=== PATIENT | male | born 1965 | race Caucasian/White ===

== ENCOUNTER → 2017-12-20 | Outpatient (CLI) | payer OTHER ==
--- NOTE | 2017-12-20 17:32 | US ---
EXAMINATION TYPE: US venous doppler duplex LE LT DATE OF EXAM: 12/20/2017 4:47 PM COMPARISON: NONE CLINICAL HISTORY: Lt leg Pain M79.672. SIDE PERFORMED: Left TECHNIQUE: The lower extremity deep venous system is examined utilizing real time linear array sonog pilar with graded compression, doppler sonography and color-flow sonography. VESSELS IMAGED: External Iliac Vein (EIV) Common Femoral Vein Deep Femoral Vein Greater Saphenous Vein * Femoral Vein Popliteal Vein Small Saphenous Vein * Proximal Calf Veins (* superficial vessels) Grayscale, color doppler, spectral doppler imaging performed of the deep veins of the lower extremity . There is normal flow, compressibility, vascular waveforms. Left Leg: Negative for DVT GSV and PTV's also scanned per order. IMPRESSION: No sonographic evidence of deep venous thrombosis within the left lower extremity.
== END | disposition home or self-care (01) ==
LOC: RADUSMAIN 16:17
PROVIDERS: ATTEND Orthopaedic Surgery
DX: M79.672 Pain in left foot (principal); E11.9 Type 2 diabetes mellitus without complications

== ENCOUNTER 2018-02-25 00:43 | Emergency (ER) | payer OTHER ==
[2018-02-25 00:49] VITALS: BP 170/91; PULSE 70; RESP 16; TEMP 97.9
[2018-02-25] MEDS ORDERED: LIDOCAINE 1% INJ 10MG/ML (20 ML MDV) SQ ONE (02:08)
--- NOTE | 2018-02-25 02:26 | ED ---
Wound/Laceration HPI - General Chief Complaint: Wound/Laceration Stated Complaint: Finger laceration Time Seen by Provider: 02/25/18 01:01 Source: patient Mode of arrival: ambulatory Limitations: no limitations - History of Present Illness Initial Comments: 52-year-old male patient presents to the emergency department today for evaluation of laceration to the index finger on the left hand. Patient states that just prior to arrival he was cutting a round valley with a very sharp knife. States that he slipped and cut his finger. Patient denies any limitations in range of motion. States that his last tetanus vaccine was approximately a year ago. Patient does take an anticoagulant was concerned about bleeding. He denies any significant pain at this time. Denies any other injuries. Patient denies any headache, neck pain, back pain, chest pain, shortness of breath, dizziness, weakness, abdominal pain, nausea, vomiting, or difficulties with bowel movements or urination. - Related Data Previous Rx's Medication Instructions Recorded Aspirin 81 mg PO DAILY #30 chew 09/04/15 Atorvastatin [Lipitor] 80 mg PO HS #30 tab 09/04/15 Enalapril [Vasotec] 5 mg PO DAILY #30 tab 09/04/15 Insulin Glargine [Lantus] 50 unit SQ HS #0 09/04/15 Insulin Lispro [humaLOG Kwikpen] 12 unit SQ AC-TID #1 insuln.pen 09/04/15 Metoprolol Tartrate [Lopressor] 25 mg PO BID #60 tab 09/04/15 Nitroglycerin Sl Tabs [Nitrostat] 0.4 mg SUBLINGUAL Q5M PRN #25 tab 09/04/15 Ticagrelor [Brilinta] 90 mg PO BID #1 tab 09/04/15 predniSONE 40 mg PO DAILY #8 tab 07/04/17 Allergies Allergy/AdvReac Type Severity Reaction Status Date / Time No Known Allergies Allergy Verified 02/25/18 00:49 Review of Systems ROS Statement: Those systems with pertinent positive or pertinent negative responses have been documented in the HPI. ROS Other: All systems not noted in ROS Statement are negative. Past Medical History Past Medical History: Coronary Artery Disease (CAD), Chest Pain / Angina, Diabetes Mellitus, GERD/Reflux, Hyperlipidemia, Hypertension, Myocardial Infarction ([place]) Last Myocardial Infarction Date:: 08/31/15 History of Any Multi-Drug Resistant Organisms: None Reported Past Surgical History: Back Surgery, Heart Catheterization With Stent Past Anesthesia/Blood Transfusion Reactions: No Reported Reaction Date of Last Stent Placement:: 08/31/15 Past Psychological History: No Psychological Hx Reported Smoking Status: Never smoker Past Alcohol Use History: Occasional Past Drug Use History: None Reported - Past Family History Father Family Medical History: Myocardial Infarction ([place]) Additional Family Medical History / Comment(s): father at age 58 from [place] General Exam Limitations: no limitations General appearance: alert, in no apparent distress, other (This is a well- developed, well-nourished adult male patient in no acute distress. Vital signs upon presentation are temperature 97.9F, pulse 70, respirations 16, blood pressure 170/91, pulse ox 98% on room air.) Eye exam: Present: normal appearance, PERRL, EOMI. Absent: scleral icterus, conjunctival injection, periorbital swelling ENT exam: Present: normal exam, normal oropharynx, mucous membranes moist Respiratory exam: Present: normal lung sounds bilaterally. Absent: respiratory distress, wheezes, rales, rhonchi, stridor Cardiovascular Exam: Present: regular rate, normal rhythm, normal heart sounds. Absent: systolic murmur, diastolic murmur, rubs, gallop, clicks Extremities exam: Present: full ROM, normal capillary refill, other (Patient has 2 cm laceration noted to the left index finger near the PIP joint. Patient has good range of motion. No visualization of the tendon. Patient has good strength against resistance both with flexion and extension. Skin to the remainder of the hand is pink, warm, and dry. Cap refills less than 3 seconds. Radial pulses 2+ and equal bilaterally.). Absent: normal inspection, tenderness, pedal edema, joint swelling, calf tenderness Course Vital Signs 02/25/18 00:46 Temperature 97.9 F Pulse Rate 70 Respiratory 16 Rate Blood Pressure 170/91 O2 Sat by Pulse 98 Oximetry Procedures - Laceration Laceration #1 Consent Obtained: verbal consent Time Out Performed: Yes Indication: laceration Site: upper extremity (Left index finger) Size (cm): 2 Description: linear Depth: simple, single layer Anesthetic Used: lidocaine 1% Anesthesia Technique: local infiltration Amount (mls): 3 Pre-repair: irrigated extensively Type of Sutures: nylon Size of Sutures: 5-0 Number of Sutures: 3 Technique: simple, interrupted Patient Tolerated Procedure: well, no complications Medical Decision Making - Medical Decision Making 52-year-old male patient presented to the emergency department today for evaluation of laceration to the left index finger. Physical examination did reveal 2 cm laceration. Bleeding was controlled. Patient had good strength against resistance with both flexion and extension. Neurovascular status was intact. Laceration was sutured as documented. Patient was instructed to return in 7 days for suture removal. He is educated regarding signs or symptoms of infection as well as appropriate wound care. Return parameters discussed in detail. He verbalizes understanding and agreed with this plan. Disposition Clinical Impression: Finger laceration Disposition: HOME SELF-CARE Condition: Good Instructions: Care For Your Stitches (ED), Finger Laceration (ED) Additional Instructions: Monitor for signs or symptoms of infection including but not limited to swelling , redness, drainage of pus, fever, or chills. Keep wound clean and dry. Cleanse twice daily with warm water and antibacterial soap. Return in 7 days to have the stitches removed. Follow-up with your primary care physician for recheck of the wound in 1-2 days. Return here immediately for any new, worsening, or concerning symptoms. Is patient prescribed a controlled substance at d/c from ED?: No Referrals: Ignacio Bojorquez DO [Primary Care Provider] - 1-2 days Time of Disposition: 02:26
== END 2018-02-25 02:35 | disposition home or self-care (01) ==
LOC: EC 00:43
DX: S61.211A Laceration without foreign body of left index finger without damage to nail, initial encounter (principal); Z79.01 Long term (current) use of anticoagulants; W26.0XXA Contact with knife, initial encounter; Y93.89 Activity, other specified
CPT/HCPCS: 99282; 12001; J2001

== ENCOUNTER → 2018-11-27 | Outpatient (CLI) | payer OTHER ==
[2018-11-28 01:57] LABS: Anion Gap 8.5 mmol/L (4.00-12.00); Calcium 9.1 mg/dL (8.7-10.3); Carbon Dioxide 19.5 mmol/L (21.6-31.8); Potassium 4.7 mmol/L (3.5-5.5)
== END | disposition home or self-care (01) ==
LOC: LABWHC1 14:50
PROVIDERS: ATTEND Family Medicine
DX: E78.5 Hyperlipidemia, unspecified (principal)
CPT/HCPCS: 36415; 80048

== ENCOUNTER → 2019-05-14 | Outpatient (CLI) | payer OTHER ==
--- NOTE | 2019-05-14 20:01 | MR ---
EXAMINATION TYPE: MR knee LT wo con DATE OF EXAM: 05/14/2019 COMPARISON: None HISTORY: Pain in left knee /Bursitis TECHNIQUE: Multiplanar, multisequence imaging of the left knee is performed without IV contrast. FINDINGS: MEDIAL MENISCUS: Intrasubstance signal posterior horn most typical of myxoid degeneration with no def inite tear. LATERAL MENISCUS: signal posterior horn most typical of myxoid degeneration with no definite tear. CRUCIATE LIGAMENTS: The anterior and posterior cruciate ligaments are intact and unremarkable. COLLATERAL LIGAMENTS: The medial collateral ligament and lateral collateral ligament complex are inta ct and unremarkable. EXTENSOR MECHANISM: Visualized quadriceps and patellar tendons are intact. EFFUSION: Trace amount fluid in the suprapatellar joint effusion. POPLITEAL CYST: No popliteal/wiseman cyst. TRICOMPARTMENT SPACES: Mild narrowing the joint spaces with no erosive change. Grade II chondromalaci a involving the medial femoral articular cartilage fibrillation involving the patellar cartilage note d. BONE MARROW SIGNAL: No focal abnormal marrow signal is appreciated. OTHER: There is extensive soft tissue edema anterior to the tibia and within the prepatellar space. Areas of mixed signal could represent areas of soft tissue hematoma. Additional diffuse soft tissue e reji noted. IMPRESSION: 1. Diffuse soft tissue edema more localized area of edema in the prepatellar space correlate for prep atellar bursitis. Heterogeneous signal in the region could represent a soft tissue hematoma or hemorr hagic component. Correlate clinically to exclude infectious etiology within the differential diagnosi s given the additional amount of diffuse soft tissue edema. 2. No definite ligamentous or meniscal tear. Findings involving the posterior horn of the medial and lateral meniscus is most typical of myxoid degeneration. 3. Osteoarthritis with chondromalacia as discussed above.
== END | disposition home or self-care (01) ==
LOC: RADMRIMAIN 19:02
PROVIDERS: ATTEND Orthopaedic Surgery
DX: M17.12 Unilateral primary osteoarthritis, left knee (principal); M94.262 Chondromalacia, left knee; M79.89 Other specified soft tissue disorders; I10 Essential (primary) hypertension; M70.42 Prepatellar bursitis, left knee

== ENCOUNTER → 2020-07-24 | Outpatient (CLI) | payer OTHER | END | disposition home or self-care (01) | LOC: LABWHC1 14:55 | PROVIDERS: ATTEND Family Medicine | DX: Z20.828 Contact with and (suspected) exposure to other viral communicable diseases (principal) | CPT/HCPCS: U0003; C9803 ==

== ENCOUNTER 2025-04-08 19:11 | Emergency (ER) | payer OTHER ==
--- NOTE | 2025-04-08 20:13 | ED ---
Wound/Laceration HPI - General Chief Complaint: Wound/Laceration Stated Complaint: L hand lac Time Seen by Provider: 04/08/25 20:03 Source: patient, RN notes reviewed Mode of arrival: ambulatory Limitations: no limitations - History of Present Illness Initial Comments: 60-year-old male presenting to the emergency department for complaints of a left third digit injury. Patient states that he was using hedge tremors outside when he excellently clipped the distal part of his third digit. He states he has neuropathy and has chronic numbness and this is not worsened after the injury. Denies loss of range of movement. Denies blood thinner use. He is unaware when his last tetanus vaccination was. - Related Data Previous Rx's Medication Instructions Recorded Aspirin 81 mg PO DAILY #30 chew 09/04/15 Atorvastatin [Lipitor] 80 mg PO HS #30 tab 09/04/15 Enalapril [Vasotec] 5 mg PO DAILY #30 tab 09/04/15 Insulin Glargine (Lantus) [Lantus 50 unit SQ HS #0 09/04/15 Vial] Insulin Lispro [humaLOG Kwikpen] 12 unit SQ AC-TID #1 insuln.pen 09/04/15 Metoprolol Tartrate [Lopressor] 25 mg PO BID #60 tab 09/04/15 Nitroglycerin Sl Tabs [Nitrostat] 0.4 mg SUBLINGUAL Q5M PRN #25 tab 09/04/15 Ticagrelor [Brilinta] 90 mg PO BID #1 tab 09/04/15 predniSONE [Deltasone] 40 mg PO DAILY #8 tab 07/04/17 Cephalexin [Keflex] 500 mg PO Q6HR #40 cap 04/08/25 Allergies Allergy/AdvReac Type Severity Reaction Status Date / Time No Known Allergies Allergy Verified 02/25/18 00:49 Review of Systems ROS Statement: Those systems with pertinent positive or pertinent negative responses have been documented in the HPI. ROS Other: All systems not noted in ROS Statement are negative. Past Medical History Past Medical History: Coronary Artery Disease (CAD), Chest Pain / Angina, Diabetes Mellitus, GERD/Reflux, Hyperlipidemia, Hypertension, [place]ocardial Infarction ([place]) Last Myocardial Infarction Date:: 08/31/15 History of Any Multi-Drug Resistant Organisms: None Reported Past Surgical History: Back Surgery, Heart Catheterization With Stent Past Anesthesia/Blood Transfusion Reactions: No Reported Reaction Date of Last Stent Placement:: 08/31/15 Past Psychological History: No Psychological Hx Reported Smoking Status: Never smoker Past Alcohol Use History: Occasional Past Drug Use History: None Reported - Past Family History Father Family Medical History: Myocardial Infarction ([place]) Additional Family Medical History / Comment(s): father at age 58 from [place] General Exam Limitations: no limitations Respiratory exam: Present: normal lung sounds bilaterally. Absent: respiratory distress, wheezes, rales, rhonchi, stridor Cardiovascular Exam: Present: regular rate, normal rhythm, normal heart sounds. Absent: systolic murmur, diastolic murmur, rubs, gallop, clicks GI/Abdominal exam: Present: soft, normal bowel sounds. Absent: distended, tenderness, guarding, rebound, rigid Left Hand Wrist exam: Present: tenderness, swelling, laceration, deformity Neuro motor exam: Present: wrist extension intact, thumb opposition intact, thumb IP flexion intact, thumb adduction intact Vascular: Absent: vascular compromise Back exam: Present: normal inspection Course Vital Signs 04/08/25 04/08/25 19:54 21:39 Temperature 98.1 F 98.0 F Pulse Rate 86 76 Respiratory 18 16 Rate Blood Pressure 177/105 164/105 O2 Sat by Pulse 97 96 Oximetry Procedures - Laceration Laceration #1 Consent Obtained: verbal consent Indication: laceration Site: hand Size (cm): 3 Description: linear Depth: simple, single layer Anesthetic Used: lidocaine 1% Anesthesia Technique: local infiltration Amount (mls): 3 Pre-repair: wound explored, irrigated extensively Type of Sutures: nylon Size of Sutures: 4-0 Number of Sutures: 5 Technique: simple, interrupted Patient Tolerated Procedure: well, no complications Medical Decision Making - Medical Decision Making Was pt. sent in by a medical professional or institution (, PA, PHERESIS NURSE, urgent care, hospital, or assisted...) When possible be specific @ -No Did you speak to anyone other than the patient for history (EMS, parent, family, police, friend...)? What history was obtained from this source @ -No Did you review nursing and triage notes (agree or disagree)? Why? @ -I reviewed and agree with nursing and triage notes Were old charts reviewed (outside hosp., previous admission, EMS record, old EKG, old radiological studies, urgent care reports/EKG's, assisted records)? Report findings @ -No old charts were reviewed Differential Diagnosis (chest pain, altered mental status, abdominal pain women, abdominal pain men, vaginal bleeding, weakness, fever, dyspnea, syncope, headache, dizziness, GI bleed, back pain, seizure, CVA, palpatations, mental health, musculoskeletal)? @ -Laceration, subungual hematoma, crush injury, open fracture, this list is not all inclusive EKG interpreted by me (3pts min.). @ -None X-rays interpreted by me (1pt min.). @ X-ray imaging of the left finger reveals an acute comminuted oblique fracture of the distal phalanx of the third digit with involvement of the cup without intra-articular extension CT interpreted by me (1pt min.). @ -None done U/S interpreted by me (1pt. min.). @ -None done What testing was considered but not performed or refused? (CT, X-rays, U/S, labs)? Why? @ -None What meds were considered but not given or refused? Why? @ -None Did you discuss the management of the patient with other professionals (professionals i.e. , PA, PHERESIS NURSE, lab, RT, psych nurse, social services specialist, application dba, teacher, commercial escrow officer, ed case manager)? Give summary @ -No Was smoking cessation discussed for >3mins.? @ -No Was critical care preformed (if so, how long)? @ -No Were there social determinants of health that impacted care today? How? (Homelessness, low income, unemployed, alcoholism, drug addiction, transportation, low edu. Level, literacy, decrease access to med. care, [facility], rehab)? @ -No Was there de-escalation of care discussed even if they declined (Discuss DNR or withdrawal of care, Hospice)? DNR status @ -No What co-morbidities impacted this encounter? (DM, HTN, Smoking, COPD, CAD, Cancer, CVA, ARF, Chemo, Hep., AIDS, mental health diagnosis, sleep apnea, morbid obesity)? @ -None Was patient admitted / discharged? Hospital course, mention meds given and route, prescriptions, significant lab abnormalities, going to OR and other pertinent info. @ -Discharge. 60-year-old male presenting with injury to the left third digit. There is a noted complicated laceration extending from the ventral distal pad to the dorsum of the distal digit extending through the nailbed. With concern for open fracture patient is provided with Rocephin. Area was cleansed with sterile water and Betadine solution. 5 sutures were placed. Surgifoam was placed over top of the distal fingertip and gauze is applied over and patient is placed in a splint. He is up-to-date on his tetanus and provided with outpatient prescription for antibiotics. He is provided with orthopedic hand follow-up. He is placed in a splint. Patient stable for discharge. Case discussed with my attending Dr. Liang Undiagnosed new problem with uncertain prognosis? @ -No Drug Therapy requiring intensive monitoring for toxicity (Heparin, Nitro, Insulin, Cardizem)? @ -No Were any procedures done? @ -suture repair Diagnosis/symptom? @ -laceration, open fracture, fracture of distal fingertip Acute, or Chronic, or Acute on Chronic? @ -acute Uncomplicated (without systemic symptoms) or Complicated (systemic symptoms)? @ -uncomplicated Side effects of treatment? @ -No Exacerbation, Progression, or Severe Exacerbation? @ -No Poses a threat to life or bodily function? How? (Chest pain, [place], [place], pneumonia, PE, COPD, DKA, ARF, appy, cholecystitis, CVA, Diverticulitis, Homicidal, Suicidal, threat to staff... and all critical care pts) @ -No Disposition Clinical Impression: Laceration, Open fracture Disposition: HOME SELF-CARE Condition: Good Instructions (If sedation given, give patient instructions): Finger Fracture (ED) Additional Instructions: Please return to the Emergency Department if symptoms worsen or any other concerns. Complete antibiotics as prescribed. Please follow-up with provided teacher selection specialist. Prescriptions: Cephalexin [Keflex] 500 mg PO Q6HR #40 cap Is patient prescribed a controlled substance at d/c from ED?: No Referrals: Nonstaff,Physician [Primary Care Provider] - 1-2 days Shreya Puentes [Doctor of Osteopathic Medicine] - 1-2 days Time of Disposition: 21:26
[2025-04-08] MEDS: LIDOCAINE 1% INJ 10MG/ML (20 ML MDV) SQ ONE (20:22)
[2025-04-08] MEDS: cefTRIAXone 1,000 MG VIAL (IM USE) IM STA (20:23)
[2025-04-08] MEDS: DIPH,PERTUS(ACELL)TETVAC-LF 0.5 ML VIAL IM ONE (20:23)
--- NOTE | 2025-04-08 20:32 | XR ---
EXAMINATION TYPE: XR finger LT DATE OF EXAM: 04/08/2025 8:25 PM INDICATION: Patient age:Male; 60 years old; Reason for study: 3rd digit laceration; PHH. pain COMPARISON: None TECHNIQUE: Frontal, lateral and oblique views of the third digit of the left hand were obtained. FINDINGS: Acute comminuted oblique fracture of the distal phalanx of the third digit. There is mild d isplacement. There is extension into the tuft. No intra-articular extension. There is associated soft tissue defect involving the tip of the third digit with surrounding soft tissue swelling. No radiopa que foreign body. IMPRESSION: Acute comminuted oblique fracture of the distal phalanx of the third digit. There is involvement of t he cup without intra-articular extension. Associated laceration. [facility], , 04/08/2025 8:30 PM
[2025-04-08 21:46] VITALS: BP 164/105; PULSE 76; RESP 16; TEMP 98
== END 2025-04-08 21:39 | disposition home or self-care (01) ==
LOC: EC 19:11
DX: S61.213A Laceration without foreign body of left middle finger without damage to nail, initial encounter (principal); Z23 Encounter for immunization; W45.8XXA Other foreign body or object entering through skin, initial encounter
CPT/HCPCS: 99283; 96372; 90471; 73140; 90715; 12002; J2003; J0696